=== PATIENT | male | born 1980 | race Caucasian/White ===

== ENCOUNTER → 2018-06-11 | Outpatient (REF) | payer OTHER | LOC: M SMT 13:39 | PROVIDERS: ATTEND Urology | DX: Z30.2 Encounter for sterilization (principal) ==

== ENCOUNTER → 2019-06-22 | Outpatient (CLI) | payer OTHER ==
[2019-06-22 20:16] LABS: BLOOD UREA NITROGEN 16 MG/DL (7-18); CARBON DIOXIDE LEVEL 30 MEQ/L (21-32); CHLORIDE LEVEL 107 MEQ/L (98-107); GLOMERULAR FILTRATION RATE > 60.0 (>60); GLUCOSE, FASTING 92 MG/DL (70-100); MAGNESIUM LEVEL 2.1 MG/DL (1.8-2.4); POTASSIUM SERUM 4.3 MEQ/L (3.5-5.1); SODIUM LEVEL 140 MEQ/L (136-145)
== END ==
LOC: M LRY 15:10
PROVIDERS: ATTEND Family Medicine
DX: R13.10 Dysphagia, unspecified (principal); K44.9 Diaphragmatic hernia without obstruction or gangrene; K22.2 Esophageal obstruction; E55.9 Vitamin D deficiency, unspecified

== ENCOUNTER → 2020-07-13 | Outpatient (CLI) | payer OTHER ==
--- NOTE | 2020-07-13 11:15 | REPVR ---
PROCEDURE INFORMATION: Exam: MR Lumbar Spine Without Contrast. Exam date and time: 07/13/2020 9:59 AM Age: 39 years old Clinical indication: Low back pain; Patient HX: Lbp w/ bilat lower ext pain; Additional info: Lbp w/ lower ext pain TECHNIQUE: Imaging protocol: Multiplanar magnetic resonance images of the lumbar spine without contrast. COMPARISON: No relevant prior studies available. FINDINGS: Vertebrae: Unremarkable. Spinal cord: Normal signal. No cord compression. L1-L2: No significant disc disease. No significant spinal canal stenosis. No neural foraminal stenosis. L2-L3: No significant disc disease. No significant spinal canal stenosis. No neural foraminal stenosis. L3-L4: No significant disc disease. No significant spinal canal stenosis. No neural foraminal stenosis. L4-L5: There is disc desiccation. There is mild disc bulging. Disc bulging extends into both neural foramen causing mild bilateral neuroforaminal narrowing. There is facet arthropathy and ligamentum flavum hypertrophy. L5-S1: There is disc desiccation. There is mild disc bulging. Disc bulging extends into both neural foramen causing mild bilateral neural foraminal narrowing. There is facet arthropathy and ligamentum flavum hypertrophy. Soft tissues: Unremarkable. IMPRESSION: Mild degenerative disc changes at L4/5 and L5/S1. Please see details above. Electronically signed by: Star Licona On 07/13/2020 11:15:52 AM
== END ==
LOC: M RAD 08:44
PROVIDERS: ATTEND Chiropractor
DX: M51.36 Other intervertebral disc degeneration, lumbar region (principal); M51.37 Other intervertebral disc degeneration, lumbosacral region; M54.5 Low back pain

== ENCOUNTER 2025-04-12 09:04 | Day surgery (SDC) | payer OTHER ==
[~2025-04-12] VITALS: Ht 172.7 cm; Wt 93.8 kg
[~2025-04-12 09:04] MED LIST: FAMO20TA PO; LR 1,000 ML IV SCH; MIDAZOLAM INJ 2 MG/2 ML VIAL As Ordered ONE; OMEP40CA5 PO
[2025-04-12] MEDS: PHENYLEPHRINE 2.5% OPHTH SOL 2ML OD SCH (09:50)
[2025-04-12] MEDS: FLURBIPROFEN 0.03% OPHTH SOLN 2.5 ML OD SCH (09:50)
[2025-04-12] MEDS: CYCLOPENTOLATE 1% OPHTH SOLN 2 ML BTL OD SCH (09:50)
[2025-04-12] MEDS: TETRACAINE 0.5% OPHTH SOLN 4ML OD SCH (09:50)
[2025-04-12] MEDS: CEFUROXIME 1 MG/0.1 ML INTRACAMERAL INJ As Ordered ONE (11:38)
[2025-04-12] MEDS: LIDOCAINE 1% SDV 5 ML VIAL As Ordered ONE (11:38)
[2025-04-12] MEDS: PROVISC 10 MG/ML 0.85ML SYRINGE As Ordered ONE (12:00)
[2025-04-12 12:15] VITALS: BP 123/80; TEMP 97; O2SAT 98
== END 2025-04-12 13:01 | disposition home or self-care (01) ==
LOC: M SDC 09:04
PROVIDERS: ATTEND Ophthalmology
DX: H25.11 Age-related nuclear cataract, right eye (principal); K21.9 Gastro-esophageal reflux disease without esophagitis; Z79.899 Other long term (current) drug therapy
CPT/HCPCS: 66984; A4649; J0697; J2250; J3010; V2788